=== PATIENT | male | born 1960 | race African-American/Black ===

== ENCOUNTER → 2016-10-25 | Outpatient (CLI) | payer OTHER ==
[~2016-10-25] MED LIST: AMBIEN 10 MG TA10 MG PO; AUGMENTIN 875875 MG PO; BACLOFEN 10MG T10 M1 PO; BACLOFEN 10MG T10 MG PO; BENADRYL25 MG PO; BETAPACE; BYSTOLIC 5 MG5 M1 PO; CARDIZEM CD240 MG PO; CEFEPIME HCL2 GM IV; CEFTIN 250 MG250 MG PO; CIPRO250 M1 PO; CLONAZEPAM 0.50.5 M1 PO; COMBIVENT INH; COMBIVENT RESPIM4 GM INH; COUMADIN 2.5MG2.5 M1 PO; COUMADIN 3 MG TA3 M1 PO; COUMADIN 4 MG TA4 M1 PO; COUMADIN 5 MG TA5 M1 PO; COUMADIN7.5 MG PO; DIGOXIN; DIGOXIN250 MCG PO; ENOXAPARIN100 MG/11 SUBQ; FLOMAX0.4 MG PO; FLONASE 0.05%50 MCG NASAL; HYDROCODONE-AP1 EAC6 PO; K-DUR 20 MEQ T20 MEQ PO; KEFLEX500 MG; KEFLEX500 MG PO; KLOR-CON 1010 MEQ PO; LASIX 40 MG TAB40 M2 PO; LASIX 40 MG TAB40 MG PO; MUCINEX TA600 MG/TA1 PO; MUPIROCIN22 GM; NITROFURANTOIN100 MG PO; NORCO 5-325 TA1 EACH PO; PAIN & FEVER325 MG PO; PRADAXA150 MG PO; PREDNISONE 10 M10 MG PO; PROTONIX40 M1 PO
== END ==
LOC: RAD 12:44
DX: R06.00 Dyspnea, unspecified (principal)

== ENCOUNTER 2017-12-19 17:33 | Emergency (ER) | payer OTHER ==
[~2017-12-19] VITALS: Ht 177.8 cm; Wt 81.7 kg
[2017-12-19 19:30] LABS: URINE BILIRUBIN NEGATIVE (Negative); URINE BLOOD 3+ (Negative); URINE CLARITY CLEAR; URINE COLOR YELLOW; URINE GLUCOSE-RANDOM* NEGATIVE (Negative); URINE KETONES NEGATIVE (Negative); URINE LEUKOCYTES 3+ (Negative); URINE NITRITE POSITIVE (Negative); URINE PROTEIN (DIPSTICK) 2+ (Negative); URINE SPECIFIC GRAVITY 1.015 (1.005-1.035); URINE UROBILINOGEN 0.2 E.U./dl (0.2-1.0)
[2017-12-19 19:37] LABS: CASTS None Seen /LPF (None Seen); CRYSTALS None Seen /LPF (None Seen); SQUAMOUS 4-10 Moderate /LPF (0-3); URINE RBC >20 Many /HPF (0-2); URINE WBC >25 Many /HPF (0-5)
[2017-12-19 19:38] LABS: WBC CLUMPS Many (None Seen)
[2017-12-19] MEDS ORDERED: KEFLEX500 M1 PO (19:53)
[2017-12-19 20:15] VITALS: BP 171/104
== END 2017-12-19 20:15 | disposition home or self-care (01) ==
LOC: ER 17:33
PROVIDERS: Nurse Practitioner
DX: N39.0 Urinary tract infection, site not specified (principal); I48.91 Unspecified atrial fibrillation; I50.9 Heart failure, unspecified

== ENCOUNTER → 2017-12-27 | Outpatient (CLI) | payer OTHER ==
[~2017-12-27] MED LIST changes: +KEFLEX500 M1 PO
[2017-12-27 13:13] LABS: BE(vivo) -1.9 mmol/L (-2 to +3); HCO3 21.9 mmol/L (22.0-26.0); PCO2 35.1 mmHg (35.0-45.0); PO2 78.6 mmHg (80.0-100.0); pH 7.413 (7.360-7.450); sO2 95.9 % (92.0-98.0)
== END ==
LOC: PUL 12:38
PROVIDERS: Internal Medicine Pulmonary Disease
DX: J98.4 Other disorders of lung (principal)

== ENCOUNTER → 2018-01-16 | Outpatient (CLI) | payer OTHER ==
--- NOTE | ~2018-01-16 | 2DMMODE ---
[facility] [place] [address] 2 D/M-MODE ECHOCARDIOGRAM Name: JESSENIAENMANUEL HERNANDEZ Room #: REG [facility]#: [id number] Admission: 01/16/18 Attend Phys: Giacomo Mendez Discharge: Date of : 64 Date of Service: 01/16/18 1540 Report #: [id number] THIS REPORT FOR: //name// APPROVED REPORT Study performed: 01/16/2018 14:50:17 EXAM: Comprehensive 2D, Doppler, and color-flow Echocardiogram Patient Location: Out-Patient Room #: Echo lab 1 Status: routine BSA: 2.15 HR: 72 bpm BP: 118/74 mmHg Other Information Study Quality: Technically Limited Indications Atrial Fibrillation Dyspnea Cardiomyopathy Hypertension/HDD 2D Dimensions IVC: 19.00 mm Aortic Valve AoV Peak Ke.: 1.01 m/s AO Peak Gr.: 4.10 mmHg LVOT Max P.49 mmHg LVOT Max V: 0.79 m/s Pulmonary Valve PV Peak Ke.: 0.92 m/s PV Peak Gr.: 3.40 mmHg Tricuspid Valve TR Peak Ke.: 2.61 m/s TR Peak Gr.: 27.31 mmHg PA Pressure: 32.00 mmHg Left Ventricle The left ventricle is normal size. There is normal left ventricular wall thickness. Left ventricular systolic function is borderline. LVEF is 50%. This study is not technically sufficient to allow evaluation of the LV diastolic function due to atrial [facility] [address] [place] [address] 2 D/M-MODE ECHOCARDIOGRAM Name: RUELASENMANUEL Room #: REG CL [facility].#: [id number] Admission: 01/16/18 Attend Phys: Giacomo Mendez Discharge: Date of : 64 Date of Service: 01/16/18 1540 Report #: [id number] fibrillation. Right Ventricle The right ventricle is normal size. The right ventricular systolic function is normal. Atria Left atrium is dilated. Right atrium is dilated. Aortic Valve The aortic valve is normal in structure. Aortic valve is calcified. No aortic regurgitation is present. There is no aortic valvular stenosis. Mitral Valve The mitral valve is normal in structure. Mild mitral regurgitation. No evidence of mitral valve stenosis. Tricuspid Valve The tricuspid valve is normal in structure. There is mild to moderate tricuspid regurgitation. Estimated PAP 32 mmHg. There is mild pulmonary hypertension. Pulmonic Valve The pulmonary valve is normal in structure. There is no pulmonic valvular regurgitation. Great Vessels The aortic root is normal in size. IVC is normal in size and collapses >50% with inspiration. Pericardium There is no pericardial effusion. <Conclusion> The left ventricle is normal size. LVEF is 50%. The right ventricle is normal size. The right ventricular systolic function is normal. Left atrium is dilated. Right atrium is dilated. The aortic valve is normal in structure. Aortic valve is calcified. The mitral valve is normal in structure. Mild mitral regurgitation. The tricuspid valve is normal in structure. [facility] [address] [address] 2 D/M-MODE ECHOCARDIOGRAM Name: ENMANUEL RUELAS Room #: REG CL [facility]#: [id number] Admission: 01/16/18 Attend Phys: Giacomo Mendez Discharge: Date of : 64 Date of Service: 01/16/181539 Report #: [id number] There is mild to moderate tricuspid regurgitation. Estimated PAP 32 mmHg. There is mild pulmonary hypertension. The pulmonary valve is normal in structure. There is no pericardial effusion. <ELECTRONICALLY SIGNED> By: Mekhi Meade MD 01/16/18 1540 39 39 Mekhi Meade MD /INF
== END ==
LOC: CV 01-11 10:34
DX: I42.9 Cardiomyopathy, unspecified (principal); I27.20 Pulmonary hypertension, unspecified; I70.0 Atherosclerosis of aorta; I08.1 Rheumatic disorders of both mitral and tricuspid valves

== ENCOUNTER 2018-02-02 13:40 | Inpatient (IN) | payer OTHER ==
[~2018-02-02] VITALS: Ht 182.9 cm; Wt 98.4 kg
--- NOTE | ~2018-02-02 | EKG ---
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 02/05/18 0810 1630 29 Jamie Corey MD, [facility] /EPI
[2018-02-02 13:40] VITALS: BP 130/97
[2018-02-02 14:56] LABS: HEMATOCRIT 43.6 % (42.0-52.0); HEMOGLOBIN 14.6 gm/dL (14.0-18.0); MCH 28.2 pg (26.0-34.0); MCHC 33.5 g/dL (28.0-37.0); MCV 84.4 fL (80.0-100.0); PLATELET COUNT 209 thou/uL (150-400); RBC 5.16 mil/uL (4.50-6.00); RDW 13.9 % (10.5-14.5); WBC 11.1 thou/uL (4.0-11.0)
[2018-02-02 15:09] LABS: CALCIUM 9.2 mg/dL (8.5-10.1); CREATININE 0.6 mg/dL (0.7-1.3); POTASSIUM 3.3 mmol/L (3.5-5.1)
[2018-02-02 15:15] LABS: TOTAL PROTEIN 8.8 g/dL (6.4-8.2)
[2018-02-02 15:18] LABS: ABSOLUTE NEUTROPHILS 8.7 thou/uL (1.4-8.2)
[2018-02-02 18:23] VITALS: BP 115/79
[2018-02-02 18:56] VITALS: BP 100/70
[2018-02-02] MEDS ORDERED: COUMADIN 5 MG TA5 M1 PO (20:24)
[2018-02-02] MEDS ORDERED: TOPROL XL25 MG PO (20:27)
[2018-02-02] MEDS ORDERED: OXYBUTYNIN 5 MG5 M2 PO (20:29)
[2018-02-02] MEDS ORDERED: BISACODYL SUPP10 MG RECTAL (20:29)
[2018-02-02] MEDS ORDERED: AMBIEN 5 MG TABL5 M1 PO (20:42)
[2018-02-02 20:45] VITALS: BP 80/57
[2018-02-03 04:00] VITALS: BP 85/62
[2018-02-03 05:52] LABS: HEMATOCRIT 41.9 % (42.0-52.0); HEMOGLOBIN 14.1 gm/dL (14.0-18.0); MCH 28.6 pg (26.0-34.0); MCHC 33.7 g/dL (28.0-37.0); MCV 84.8 fL (80.0-100.0); RBC 4.94 mil/uL (4.50-6.00); RDW 13.8 % (10.5-14.5); WBC 8.8 thou/uL (4.0-11.0)
[2018-02-03 05:59] LABS: CALCIUM 8.7 mg/dL (8.5-10.1); CREATININE 0.6 mg/dL (0.7-1.3); MAGNESIUM 1.8 mg/dL (1.8-2.4); POTASSIUM 3.7 mmol/L (3.5-5.1)
[2018-02-03 07:50] VITALS: BP 98/64
[2018-02-03 08:00] VITALS: BP 98/64
[2018-02-03 08:10] VITALS: BP 137/61
[2018-02-03 16:16] VITALS: BP 101/77
[2018-02-03 16:23] LABS: PROTIME 47.8 Seconds (9.3-11.4)
[2018-02-03 16:25] LABS: INR 4.8
[2018-02-03 19:25] VITALS: BP 102/80
[2018-02-04 04:54] VITALS: BP 112/85
[2018-02-04 07:52] VITALS: BP 182/116
[2018-02-04 08:23] LABS: HEMATOCRIT 43.1 % (42.0-52.0); HEMOGLOBIN 14.3 gm/dL (14.0-18.0); MCH 28.2 pg (26.0-34.0); MCHC 33.3 g/dL (28.0-37.0); MCV 84.5 fL (80.0-100.0); RBC 5.09 mil/uL (4.50-6.00); WBC 8.7 thou/uL (4.0-11.0)
[2018-02-04 08:31] LABS: CALCIUM 8.9 mg/dL (8.5-10.1); CREATININE 0.6 mg/dL (0.7-1.3); MAGNESIUM 1.8 mg/dL (1.8-2.4); POTASSIUM 3.5 mmol/L (3.5-5.1)
[2018-02-04 08:36] LABS: INR 4.3; PROTIME 42.8 Seconds (9.3-11.4)
[2018-02-04 14:29] LABS: URINE BILIRUBIN NEGATIVE (Negative); URINE BLOOD 2+ (Negative); URINE CLARITY CLEAR; URINE COLOR YELLOW; URINE GLUCOSE-RANDOM* NEGATIVE (Negative); URINE KETONES NEGATIVE (Negative); URINE NITRITE-REFLEX NEGATIVE (Negative); URINE PROTEIN (DIPSTICK) NEGATIVE (Negative); URINE UROBILINOGEN 0.2 E.U./dl (0.2-1.0)
[2018-02-04 14:33] LABS: URINE LEUKOCYTES-REFLEX 1+ (Negative)
[2018-02-04 14:49] LABS: BACTERIA-REFLEX None Seen /HPF (None Seen); CASTS None Seen /LPF (None Seen); CRYSTALS None Seen /LPF (None Seen); SQUAMOUS None Seen /LPF (0-3); URINE RBC 3-10 Few /HPF (0-2); URINE WBC-REFLEX 0-5 Rare /HPF (0-5)
[2018-02-04 17:12] VITALS: BP 114/84
[2018-02-04 20:30] VITALS: BP 83/56
[2018-02-05 04:20] LABS: HEMATOCRIT 42.9 % (42.0-52.0); HEMOGLOBIN 14.1 gm/dL (14.0-18.0); MCH 27.9 pg (26.0-34.0); MCHC 32.9 g/dL (28.0-37.0); MCV 84.7 fL (80.0-100.0); RBC 5.07 mil/uL (4.50-6.00); RDW 13.9 % (10.5-14.5); WBC 9.1 thou/uL (4.0-11.0)
[2018-02-05 04:29] LABS: CALCIUM 8.8 mg/dL (8.5-10.1); CREATININE 0.7 mg/dL (0.7-1.3); MAGNESIUM 1.6 mg/dL (1.8-2.4); POTASSIUM 3.4 mmol/L (3.5-5.1)
[2018-02-05 04:30] VITALS: BP 111/79
[2018-02-05 04:31] LABS: PROTIME 40.3 Seconds (9.3-11.4)
[2018-02-05 08:09] VITALS: BP 132/100
[2018-02-05 12:46] VITALS: BP 107/74
[2018-02-05 17:07] VITALS: BP 83/51
[2018-02-05 20:30] VITALS: BP 127/85
[2018-02-05 23:45] VITALS: BP 91/60
[2018-02-06 03:50] VITALS: BP 66/67
[2018-02-06 04:15] LABS: HEMATOCRIT 41.7 % (42.0-52.0); HEMOGLOBIN 13.8 gm/dL (14.0-18.0); MCH 27.8 pg (26.0-34.0); MCV 84.1 fL (80.0-100.0); RBC 4.96 mil/uL (4.50-6.00); RDW 14.1 % (10.5-14.5); WBC 9.5 thou/uL (4.0-11.0)
[2018-02-06 04:23] LABS: CALCIUM 8.5 mg/dL (8.5-10.1); CREATININE 0.7 mg/dL (0.7-1.3); MAGNESIUM 1.7 mg/dL (1.8-2.4); POTASSIUM 3.2 mmol/L (3.5-5.1)
[2018-02-06 04:25] VITALS: BP 92/67
[2018-02-06 04:28] LABS: INR 3.3; PROTIME 33.5 Seconds (9.3-11.4)
[2018-02-06 08:26] VITALS: BP 126/95
[2018-02-06 09:57] LABS: MAGNESIUM 1.7 mg/dL (1.8-2.4); POTASSIUM 3.6 mmol/L (3.5-5.1)
[2018-02-06 19:50] VITALS: BP 138/84
[2018-02-07 04:39] VITALS: BP 90/63
[2018-02-07 05:32] LABS: INR 2.9; PROTIME 28.8 Seconds (9.3-11.4)
[2018-02-07 07:04] VITALS: BP 101/74
[2018-02-07 13:05] VITALS: BP 101/74
[2018-02-07 14:16] VITALS: BP 101/74
[2018-02-07] MEDS ORDERED: AUGMENTIN 875-1 EACH PO (15:07)
[2018-02-07 16:47] VITALS: BP 101/74
== END 2018-02-07 17:15 | disposition home health service (06) | DRG 727 ==
LOC: ER 13:40 → EROBS 17:13 → 4E 17:13
PROVIDERS: Emergency Medicine; Internal Medicine; Nurse Practitioner Acute Care; Specialist
DX: N49.2 Inflammatory disorders of scrotum (principal); G82.52 Quadriplegia, C1-C4 incomplete; I42.9 Cardiomyopathy, unspecified; I48.92 Unspecified atrial flutter; N39.0 Urinary tract infection, site not specified; N31.9 Neuromuscular dysfunction of bladder, unspecified; I48.91 Unspecified atrial fibrillation; Z89.411 Acquired absence of right great toe; I50.9 Heart failure, unspecified; Z79.01 Long term (current) use of anticoagulants; Z79.899 Other long term (current) drug therapy; Z87.891 Personal history of nicotine dependence
CPT/HCPCS: 10183; 50455; 51620

== ENCOUNTER 2018-08-24 21:53 | Emergency (ER) | payer OTHER ==
[~2018-08-24] VITALS: Ht 182.9 cm; Wt 95.3 kg
[~2018-08-24 21:53] MED LIST changes: +AMBIEN 5 MG TABL5 M1 PO; +AUGMENTIN 875-1 EACH PO; +BISACODYL SUPP10 MG RECTAL; +OXYBUTYNIN 5 MG5 M2 PO; +TOPROL XL25 MG PO
[2018-08-24 22:31] LABS: URINE BILIRUBIN NEGATIVE (Negative); URINE BLOOD 2+ (Negative); URINE CLARITY CLOUDY; URINE COLOR YELLOW; URINE GLUCOSE-RANDOM* NEGATIVE (Negative); URINE KETONES TRACE (Negative); URINE PROTEIN (DIPSTICK) NEGATIVE (Negative); URINE SPECIFIC GRAVITY 1.025 (1.005-1.035); URINE UROBILINOGEN 0.2 E.U./dl (0.2-1.0)
[2018-08-24 22:32] LABS: HEMATOCRIT 52.4 % (42.0-52.0); HEMOGLOBIN 17.6 gm/dL (14.0-18.0); MCH 28.9 pg (26.0-34.0); MCHC 33.7 g/dL (28.0-37.0); RBC 6.1 mil/uL (4.50-6.00); RDW 15.3 % (10.5-14.5); WBC 10.9 thou/uL (4.0-11.0)
[2018-08-24 22:33] LABS: CALCIUM 9.1 mg/dL (8.5-10.1); CREATININE 0.8 mg/dL (0.7-1.3); POTASSIUM 3.9 mmol/L (3.5-5.1)
[2018-08-24 22:35] LABS: URINE LEUKOCYTES-REFLEX 3+ (Negative); URINE NITRITE-REFLEX POSITIVE (Negative)
[2018-08-24 22:39] LABS: ALBUMIN 4.1 g/dL (3.4-5.0); TOTAL BILIRUBIN 1.2 mg/dL (<0.1-1.0); TOTAL PROTEIN 8.7 g/dL (6.4-8.2)
[2018-08-24 22:40] LABS: CASTS None Seen /LPF (None Seen); CRYSTALS None Seen /LPF (None Seen); MUCUS 0-3 Light strn/LPF (None Seen); SQUAMOUS 4-10 Moderate /LPF (0-3); WBC CLUMPS Few (None Seen)
[2018-08-24 22:41] LABS: AMORPHOUS URATES Few /LPF (None Seen)
[2018-08-25] MEDS ORDERED: FLAGYL500 M1 PO (01:09)
[2018-08-25] MEDS ORDERED: VIBRAMYCIN 100100 MG PO (01:09)
[2018-08-25 01:41] VITALS: BP 104/77
== END 2018-08-25 01:43 | disposition home or self-care (01) ==
LOC: ER 21:53
PROVIDERS: Emergency Medicine
DX: K62.89 Other specified diseases of anus and rectum (principal); N39.0 Urinary tract infection, site not specified; I48.91 Unspecified atrial fibrillation; I42.9 Cardiomyopathy, unspecified; I50.9 Heart failure, unspecified; Z87.01 Personal history of pneumonia (recurrent); Z89.411 Acquired absence of right great toe; Z79.01 Long term (current) use of anticoagulants; Z79.899 Other long term (current) drug therapy

== ENCOUNTER → 2020-10-15 | Outpatient (CLI) | payer OTHER ==
[~2020-10-15] MED LIST changes: +FLAGYL500 M1 PO; +VIBRAMYCIN 100100 MG PO
== END ==
LOC: RAD 11:53
PROVIDERS: ATTEND Pediatrics
DX: J44.9 Chronic obstructive pulmonary disease, unspecified (principal); J98.4 Other disorders of lung; Q24.0 Dextrocardia

== ENCOUNTER 2021-02-06 14:36 | Inpatient (IN) | payer OTHER ==
[2021-02-06] VITALS (11 sets, daily range): BP systolic 71–115; BP diastolic 34–75
[~2021-02-06] VITALS: Ht 198.1 cm; Wt 104.9 kg
[2021-02-06 15:03] LABS: HEMATOCRIT 52.7 % (42.0-52.0); HEMOGLOBIN 17.7 gm/dL (14.0-18.0); MCH 29.5 pg (26.0-34.0); MCHC 33.6 g/dL (28.0-37.0); MCV 87.7 fL (80.0-100.0); PLATELET COUNT 159 thou/uL (150-400); RBC 6.01 mil/uL (4.50-6.00); RDW 15.2 % (10.5-14.5); WBC 14.8 thou/uL (4.0-11.0)
[2021-02-06 15:19] LABS: CALCIUM 9.1 mg/dL (8.5-10.1); POTASSIUM 4.7 mmol/L (3.5-5.1)
[2021-02-06 15:23] LABS: INR 2.52; PROTIME 26.3 Seconds (10.5-12.1)
[2021-02-06 15:28] LABS: ABSOLUTE NEUTROPHILS 12.9 thou/uL (1.4-8.2)
[2021-02-06 15:30] LABS: ALBUMIN 3.6 g/dL (3.4-5.0); DIRECT BILIRUBIN 0.2 mg/dL (<0.1-0.2); TOTAL BILIRUBIN 1.5 mg/dL (0.2-1.0); TOTAL PROTEIN 7.8 g/dL (6.4-8.2); TROPONIN-I 0.52 ng/mL (<0.06)
[2021-02-06 15:47] LABS: BE(vivo) -4.8 mmol/L (-2 to +3); HCO3 19.6 mmol/L (22.0-26.0); PCO2 35.3 mmHg (35.0-45.0); PO2 173.8 mmHg (80.0-100.0); pH 7.363 (7.360-7.450); sO2 99.1 % (92.0-98.0)
[2021-02-06 16:26] LABS: URINE BLOOD 3+ (Negative); URINE GLUCOSE-RANDOM* NEGATIVE (Negative); URINE KETONES TRACE (Negative); URINE PROTEIN (DIPSTICK) 3+ (Negative); URINE SPECIFIC GRAVITY 1.025 (1.005-1.035)
[2021-02-06 16:29] LABS: URINE LEUKOCYTES-REFLEX 2+ (Negative); URINE NITRITE-REFLEX POSITIVE (Negative)
[2021-02-06 16:30] LABS: ICTOTEST (BILI CONFIRMATORY) Negative (Negative); URINE BILIRUBIN NEGATIVE (Negative); URINE CLARITY CLOUDY; URINE COLOR REDDISH
[2021-02-06 16:31] LABS: SQUAMOUS None Seen /LPF (0-3); URINE WBC-REFLEX >25 Many /HPF (0-5)
[2021-02-06 16:32] LABS: BACTERIA-REFLEX >30 Many /HPF (None Seen); CASTS None Seen /LPF (None Seen); CRYSTALS None Seen /LPF (None Seen); URINE RBC >20 Many /HPF (NONE SEEN)
[2021-02-06] MEDS ORDERED: WARFARIN SODIUM5 MG PO (16:54)
[2021-02-06 22:11] LABS: CALCIUM 8.2 mg/dL (8.5-10.1); CREATININE 0.9 mg/dL (0.7-1.3); PHOSPHORUS 4.1 mg/dL (2.5-4.9); POTASSIUM 4.7 mmol/L (3.5-5.1); TROPONIN-I 0.22 ng/mL (<0.06)
[2021-02-07] VITALS (29 sets, daily range): BP systolic 91–149; BP diastolic 37–108
[2021-02-07 01:28] LABS: AMP/METHAMP Negative (Negative); BARBITURATES Negative (Negative); BENZODIAZEPINES Negative (Negative); COCAINE Negative (Negative); METHADONE Negative (Negative); OPIATES Negative (Negative); PCP Negative (Negative)
[2021-02-07 02:28] LABS: BASOPHILS 0.3 % (0.0-2.0); MCHC 31.7 g/dL (28.0-37.0)
[2021-02-07 02:30] LABS: ABSOLUTE NEUTROPHILS 14.9 thou/uL (1.4-8.2); HEMOGLOBIN 15.2 gm/dL (14.0-18.0); LYMPHOCYTES 5.1 % (24.0-44.0); MCH 28.6 pg (26.0-34.0); MONOCYTES 3.6 % (1.0-8.0); PLATELET COUNT 140 thou/uL (150-400); RBC 5.33 mil/uL (4.50-6.00); WBC 16.4 thou/uL (4.0-11.0)
[2021-02-07 02:38] LABS: INR 3.59; PROTIME 36.8 Seconds (10.5-12.1)
[2021-02-07 02:40] LABS: ALBUMIN 3.1 g/dL (3.4-5.0); CALCIUM 7.7 mg/dL (8.5-10.1); CREATININE 0.8 mg/dL (0.7-1.3); MAGNESIUM 1.7 mg/dL (1.8-2.4); PHOSPHORUS 2.9 mg/dL (2.6-4.7); POTASSIUM 3.8 mmol/L (3.5-5.1); TOTAL BILIRUBIN 1.1 mg/dL (0.2-1.0); TOTAL PROTEIN 6.8 g/dL (6.4-8.2)
--- NOTE | 2021-02-07 05:37 | NUR ---
Patient arrived to the unit approx 1944 from the ER via cart, nurse and respiratory. Patient awake and on Bipap. Transferred patient to ICU bed and placed on full ICU monitoring. Patient able to participate in admission history. HR noted to be in the 40's. Afib or Junctional. Consults called. Spoke to Dr. Hsieh and Dr. Lockwood. Dr. Hernandez did not call back. Patient rested for awhile and then started coughing, wanted off the bipap and to be placed on his own cpap that his friend has broght up to the hospital. RT at bedside to assist with this. Bedtime meds given and patient has slept most of the night since midnight. Am labs drawn and results noted. Patient placed on Levophed soon after arrival to ICu for pressures in the 70's. Max was 5 mcgs/min. Patient's pressures have improved through the night and now the levophed is off. Patient has his own Trilogy (AVAPS) at bedside with 2L o2. Adequate oxygenation on this. Taking water and pills by mouth without difficulty. Orders for NPO. Will address with day shift. No family called this shift. Patient with suprapubic cath in place, adequate urine output. See documentation on interventions for assessment details. Patient is progressing towards goals.
--- NOTE | 2021-02-07 08:22 | HC ---
[facility] [place] [address] CONSULTATION Name: ENMANUEL RUELAS Room #: 242-P ADM IN M.R.#: [id number] Admission: 02/06/21 Attend Phys: Norma Phillips MD Discharge: Date of : 64 Report #: [id number] THIS REPORT FOR: cc: Luis A Sánchez MD, Michael D. MD Barry, Joseph W. MD ~ DOC #: [id number] Leon Hsieh MD DATE OF SERVICE: 02/07/2021 INFECTIOUS DISEASE CONSULTATION ATTENDING PHYSICIAN: Dr. Phillips. REASON FOR EVALUATION: Sepsis secondary to complicated genitourinary tract infection, also pneumonitis. HISTORY OF PRESENT ILLNESS: Chart reviewed, patient examined. This is a 60-year-old gentleman with longstanding quadriplegia, has got a longstanding bladder catheter. He generally has been staying at home through the COVID period. Apparently diagnosed with complicated urinary tract infection, although he was not treated. He presented to the emergency room with complaints of progressive dyspnea. Evaluation was undertaken and was found to have marked pyuria. Initial CBC showed a mildly elevated white count of 14.8. He was hemoconcentrated with hemoglobin of 17.7, hematocrit of 52.7. Mild coagulopathy with INR of 2.52, lactic acid 2.5, that increased to 4.0 and procalcitonin 0.36. Chest x-ray was done as was CT of the chest. The latter showed left upper lobe and left lower lobe pneumonitis. He was concerned about worsening clinical status. The patient was clearly compromised. He was placed in the intensive care unit, given broad-spectrum antimicrobial therapy with meropenem and vancomycin. He is fairly lucid this morning, does remain in moderate discomfort. He has not had any recorded temperature elevations, although did require initially some pressor support with norepinephrine, this has been weaned off. ALLERGIES: None known. MEDICATIONS: Include bisacodyl, aspirin, hydrocortisone topically, vancomycin, clonazepam, baclofen, Combivent inhaler, zolpidem, famotidine, p.r.n. analgesics, antiemetics, meropenem. PAST MEDICAL HISTORY: As described above quadriplegia, C4 injury. He has a cardiomyopathy, recurrent complicated urinary tract infection with suprapubic catheter, chronic atrial fibrillation on anticoagulation, IVC filter. SOCIAL HISTORY: Former smoker, no ethanol, no illicit drug use. [address] [address] CONSULTATION Name: ENMANUEL RUELAS Room #: 242-P [facility]#: [id number] Admission: 02/06/21 Attend Phys: Norma Phillips MD Discharge: Date of : 64 Report #: [id number] FAMILY HISTORY: Noncontributory. REVIEW OF SYSTEMS: Otherwise, unremarkable. A 10-point review of systems exception of the above. PHYSICAL EXAMINATION: GENERAL: Appears chronically ill, undernourished. He is pleasant, cooperative. He is generally lucid. VITAL SIGNS: Temperature 97.9, pulse 74, respirations 14, blood pressure 93/63. SKIN: Warm, dry, no rashes. HEENT: Normocephalic. Extraocular muscles intact. NECK: Supple. He is on 2 L CPAP. LUNGS: Few scattered coarse breath sounds. HEART: Irregular, I do not appreciate a murmur. ABDOMEN: Somewhat distended. Suprapubic catheter in place. Mildly firm. EXTREMITIES: Some edema. GENITOURINARY AND RECTAL: Deferred. LABORATORY DATA: Most recent lactic acid this morning 1.1. Electrolytes: Sodium 139, potassium 3.8, chloride 107, bicarbonate is 20, anion gap of 12, BUN and creatinine 27.0 and 0.8, glucose of 128. LFTs unremarkable. Albumin of 3.1, total protein of 6.8. Estimated GFR of 120. PTT 36.8, INR of 3.59. CBC: White count of 16.4, H and H 15.2 and 48, platelets of 140. Drug screen was negative. TSH 2.103. CPK 149. Troponin 0.29. CT imaging of the chest as noted above. IMPRESSION: 1. Complicated urinary tract infection in the setting of suprapubic catheter. The patient with quadriplegia. 2. Pneumonitis, this may be acute on chronic as well. We will plan to continue empiric antimicrobial therapy in combination. Await culture results. I would imagine ____ down fairly quickly, although given his underlying issue, he remains tenuous. We will add incentive spirometry. Monitor expectantly. Leon Hsieh MD [facility] <ELECTRONICALLY SIGNED> By: Leon Hsieh MD 02/07/21 0822 0554 0629 Leon Hsieh MD /nt
--- NOTE | 2021-02-07 09:05 | EKG ---
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: LORIN : 1960 Requested By: Pj Prado Order Number: [id number] MD: José Miguel Lockwood Measurements Intervals [place] Rate: 48 P: FL: QRS: 93 QRSD: 129 T: 57 QT: 525 QTc: 470 Interpretive Statements A-flutter/fibrillation w/ complete AV block Right bundle branch block Compared to ECG 02/04/2018 16:30:53 Right bundle-branch block now present Electronically Signed On 02-07-2021 9:05:40 CDT by José Miguel Lockwood [email or web address] <ELECTRONICALLY SIGNED> By: José Miguel Lockwood MD, [facility] 02/07/21904 49 49 José Miguel Lockwood MD, [facility] /EPI
--- NOTE | 2021-02-07 09:48 | NUR ---
ALERT AND ORIENTED AND DENIES PAIN, VITALS STABLE AND HAS BEEN OFF LEVO OF LAST NIGHT PER REPORT. STARTED ON DIET AND DENIES NAUSEA. SUPRAPUBIC CATH NOTED WITH ADEQUATE OUTPUT. NO COMPLAINTS AT THIS TIME. WILL CONTINUE WITH POC.
--- NOTE | 2021-02-07 10:49 | NUR ---
VASCULAR ACCESS NURSE NOTED THE PICC/CENTRAL ORDER THAT WAS PLACED IN [facility] LAST PM. SPOKE TO THE HOT STONE SETTER THIS AM AT 0900. THIS PATIENT IS NOW OFF LEVOPHED AND HAS WORKING PIV ACCESS. I WILL AWAIT THE DECISION ON IF THE LINE IS STILL NECESSARY AND WILL RETURN TO PLACE IF NEEDED.
[2021-02-08] VITALS (12 sets, daily range): BP systolic 104–145; BP diastolic 74–103
[2021-02-08 03:05] LABS: GLYCOHEMOGLOBIN (HGB A1C) 5.7 % (4.8-5.6)
[2021-02-08 06:14] LABS: ABSOLUTE NEUTROPHILS 7.2 thou/uL (1.4-8.2); BASOPHILS 0.4 % (0.0-2.0); EOSINOPHILS 0.1 % (0.0-3.0); HEMATOCRIT 44.5 % (42.0-52.0); HEMOGLOBIN 14.5 gm/dL (14.0-18.0); LYMPHOCYTES 10.1 % (24.0-44.0); MCH 28.6 pg (26.0-34.0); MCHC 32.6 g/dL (28.0-37.0); MCV 87.5 fL (80.0-100.0); MONOCYTES 8.3 % (1.0-8.0); PLATELET COUNT 118 thou/uL (150-400); POLYS 81.1 % (36.0-66.0); RBC 5.08 mil/uL (4.50-6.00); RDW 14.9 % (10.5-14.5); WBC 8.9 thou/uL (4.0-11.0)
[2021-02-08 06:15] LABS: INR 3.72; PROTIME 38.1 Seconds (10.5-12.1)
[2021-02-08 06:33] LABS: CALCIUM 8.2 mg/dL (8.5-10.1); CREATININE 0.6 mg/dL (0.7-1.3); MAGNESIUM 2.4 mg/dL (1.8-2.4); PHOSPHORUS 1.7 mg/dL (2.5-4.9); POTASSIUM 3.6 mmol/L (3.5-5.1)
--- NOTE | 2021-02-08 07:46 | EKG ---
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 : 1960 Requested By: Norma Phillips Order Number: [id number] : José Miguel Lockwood Measurements Intervals [place] Rate: 81 P: CT: QRS: 69 QRSD: 94 T: 74 QT: 437 QTc: 508 Interpretive Statements Atrial fibrillation Compared to ECG 02/06/2021 14:50:41 Atrial flutter no longer present AV block, complete (third-degree) no longer present Right bundle-branch block no longer present Electronically Signed On 02-08-2021 7:45:56 CDT by José Miguel Lockwood [email or web address] <ELECTRONICALLY SIGNED> By: José Miguel Lockwood MD, [facility] 02/08/21 0745 0739 0739 José Miguel Lockwood MD, [facility] /[facility]
--- NOTE | 2021-02-08 07:55 | NUR ---
RECEIVED REPORT FROM JACKIE TIMBER CRUISER.PATIENT A/O X 4.DENIES PAIN.ON CPAP/TRILOGY.ABLE TO MOVE HIS LEFT ARM AND THE RIGHT ARM HAS LIMITED MOVEMENT,OTHERWISE PATIENT IS A QUAD.SUPRAPUBIC CATH INTACT.MONITOR SHOWS AFIB.POC CONTINUED.
--- NOTE | 2021-02-08 09:41 | NUR ---
WOUND CONSULT; I AM RESPONDING TO A CONSULT ENTERED. THE NURSE STATES THERE ARE NO WOUNDS, AND THE PATIENT STATES THERE ARE NO WOUNDS. WOUND CARE WITH SIGN OFF. DISCUSSED WITH RN
--- NOTE | 2021-02-08 09:42 | 2DMMODE ---
[facility] [place] [address] 2 D/M-MODE ECHOCARDIOGRAM Name: ENMANUEL RUELAS Room #: 219-P ADM IN M.R.#: [id number] Admission: 02/06/21 Attend Phys: Norma Phillips MD Discharge: Date of : 64 Report #: [id number] THIS REPORT FOR: cc: Luis A Sánchez MD, Michael D. MD Santiago, Patrick MD [facility] ~ APPROVED REPORT Study performed: 02/08/2021 08:45:31 EXAM: Comprehensive 2D, Doppler, and color-flow Echocardiogram Patient Location: Bedside Room #: 219 Status: routine BSA: 2.29 HR: 79 bpm BP: 136/103 mmHg Rhythm: Atrial Fibrillation Other Information Study Quality: Poor/only subcoastal windows Technically limited study due to CPAP, inability to postition. Indications LV function. Hx: Afib, quadraplegia. 2D Dimensions IVSd: 13.64 (7-11mm) LVDd: 46.29 mm PWd: 11.53 (7-11mm) LVDs: 32.95 (25-40mm) Left Atrium: 53.58 (27-40mm) Aortic Valve AoV Peak Ke.: 1.45 m/s AO Peak Gr.: 8.41 mmHg Mitral Valve MV Decel. Time: 177.70 ms MV E Max Ke.: 0.91 m/s Tricuspid Valve [facility] [address] [place] [address] 2 D/M-MODE ECHOCARDIOGRAM Name: ENMANUEL RUELAS Room #: 219-P ADM IN M.R.#: [id number] Admission: 02/06/21 Attend Phys: Norma Phillips, Discharge: Date of : 64 Report #: [id number] TR Peak Ke.: 2.97 m/s RAP Estimate: 15.00 mmHg TR Peak Gr.: 35.32 mmHg PA Pressure: 50.00 mmHg Left Ventricle The left ventricle is normal size. Mild concentric left ventricular hypertrophy. Left ventricular systolic function is normal. LVEF is 55%. This study is not technically sufficient to allow evaluation of the LV diastolic function due to atrial fibrillation. Right Ventricle Right ventricle is dilated. The right ventricular systolic function is low normal. Atria Biatrial enlargement. Aortic Valve The aortic valve is not well visualized. No aortic regurgitation is present. There is no aortic valvular stenosis. Mitral Valve The mitral valve is normal in structure. Trace mitral regurgitation. No evidence of mitral valve stenosis. Tricuspid Valve The tricuspid valve is normal in structure. Moderate tricuspid regurgitation. Estimated PAP is 45-50mmHg. Pulmonic Valve Pulmonic valve is not well visualized. Great Vessels IVC is dilated and collapses <50% with inspiration. Pericardium There is no pericardial effusion. <Conclusion> Technically difficult study Normal left ventricle size/mild concentric hypertrophy Ejection fraction 60% Right ventricle appears to be mildly dilated Borderline atrial enlargement Color-flow Doppler study was performed of the [facility] [address] [place] [address] 2 D/M-MODE ECHOCARDIOGRAM Name: RUELASENMANUELALEX HERNANDEZ Room #: 219-P ADM IN M.R.#: [id number] Admission: 02/06/21 Attend Phys: Norma Phillips, Discharge: Date of : 64 Report #: [id number] aortic/mitral/tricuspid/pulmonary valve Abnormal aortic/mitral valve structure and function Moderate tricuspid valve insufficiency Pulmonary systolic pressure estimated 40-50 mmHg No pericardial effusion IVC moderately dilated minimally responsive to respiration. Normal aortic root size. <ELECTRONICALLY SIGNED> By: José Miguel Lockwood MD, [facility] 02/08/21941 1 1 José Miguel Lockwood MD, [facility] /INF
--- NOTE | 2021-02-08 12:30 | NUR ---
Initial RD consult for wound. Admit with pneumonia, elevated troponin, UTI. Hx quadraplegia. Wound care consulted, however pt does not have wound. Appetite is good, has menu to order own selections if desired. NPO for procedure, previous had heart healthy diet order. Low nutrition risk
--- NOTE | 2021-02-08 16:18 | NUR ---
met with patient who admits with dsypnea, uti. Patient resides at home independently. He has wheelchair, hospital bed, ashley lift, home oxygen via [employer], Bipap and ramp to home. Patient reports he essentially at home alone. He has family assist to assist him out of bed to his chair. Patient has [facility] lpta. Plan resumption of care. Patient reports he is uncomfortable in hospital bed. he reports he has had skin breakdown in past and questioning if can have a different bed or mattress overlay. Updated NAYLA. Noman
--- NOTE | 2021-02-08 16:43 | NUR ---
PT CARE ASSUMED AT 0700. ASSESSMENTS CHARTED. MEDICATIONS CHARTED. RAC IV. LFA IV. ATIAL FIBRILLATION. CPAP WITH 2LPM. SUPRAPUBIC CATHETER. BRONCHOSCOPY CONSENT SIGNED. ECHO. CXR PORTABLE. NPO EXCEPT MEDS AND SIPS OF LIQUID. PARAPLEGIC FROM CHEST DOWN.
[2021-02-09] VITALS (7 sets, daily range): BP systolic 101–130; BP diastolic 75–91
[2021-02-09 04:00] LABS: HEMATOCRIT 43.9 % (42.0-52.0); HEMOGLOBIN 14.3 gm/dL (14.0-18.0); MCH 28.7 pg (26.0-34.0); MCHC 32.6 g/dL (28.0-37.0); RBC 4.99 mil/uL (4.50-6.00); RDW 14.7 % (10.5-14.5); WBC 7.1 thou/uL (4.0-11.0)
[2021-02-09 04:36] LABS: CALCIUM 8.2 mg/dL (8.5-10.1); CREATININE 0.5 mg/dL (0.7-1.3); POTASSIUM 3.1 mmol/L (3.5-5.1)
[2021-02-09 11:32] LABS: INR 2.23; PROTIME 23.4 Seconds (10.5-12.1)
--- NOTE | 2021-02-09 17:32 | NUR ---
PT CARE ASSUMED AT 0700. ASSESSMENTS CHARTED. MEDICATIONS CHARTED. RAC IV. LFA IV. ATRIAL FIBRILLATION. TRILOGY CPAP WITH 2LPM O2. COVID NEGATIVE. SUPRAPUBIC CATHETER. BRONCHOSCOPY AT 1315, MINIMAL SECRETIONS REMOVED. PT PLACED ON A NEW AIR BED, PREFERS IT GREATLY.
[2021-02-10 02:38] LABS: HEMATOCRIT 46.2 % (42.0-52.0); HEMOGLOBIN 15.2 gm/dL (14.0-18.0); MCH 28.5 pg (26.0-34.0); MCHC 32.9 g/dL (28.0-37.0); MCV 86.7 fL (80.0-100.0); RBC 5.32 mil/uL (4.50-6.00); RDW 14.5 % (10.5-14.5); WBC 7.6 thou/uL (4.0-11.0)
[2021-02-10 02:45] LABS: CALCIUM 8.4 mg/dL (8.5-10.1); CREATININE 0.7 mg/dL (0.7-1.3)
[2021-02-10 03:09] LABS: POTASSIUM 4.1 mmol/L (3.5-5.1)
[2021-02-10 04:45] VITALS: BP 113/84
[2021-02-10 06:16] LABS: URINE BILIRUBIN NEGATIVE (Negative); URINE BLOOD TRACE (Negative); URINE COLOR YELLOW; URINE GLUCOSE-RANDOM* NEGATIVE (Negative); URINE KETONES NEGATIVE (Negative); URINE LEUKOCYTES-REFLEX TRACE (Negative); URINE NITRITE-REFLEX NEGATIVE (Negative); URINE PROTEIN (DIPSTICK) NEGATIVE (Negative); URINE SPECIFIC GRAVITY >= 1.030 (1.005-1.035); URINE UROBILINOGEN 0.2 E.U./dl (0.2-1.0)
[2021-02-10 06:17] LABS: URINE CLARITY SL HAZY
[2021-02-10 07:36] VITALS: BP 126/90
--- NOTE | 2021-02-10 09:29 | NUR ---
ASSUMED PT CARE AT 0700. AT 0850, ASSESSMENT PERFORMED CHARTED. VSS. PT VOICES NO CONCERNS AT THIS TIME. WILL CONTINUE TO MONITOR AND FOLLOW POC.
[2021-02-10 11:18] VITALS: BP 138/91
--- NOTE | 2021-02-10 14:51 | NUR ---
spoke with patient cont plan for home with [facility]. OT reports patient refused. He reports hosp bed at home with trapeze at home. Sp with [facility] patient in recert period but they are agreeable to cont service with patient. faxed updated information for review.
--- NOTE | 2021-02-10 15:20 | NUR ---
ORDERS RECEIVED FOR EVAL AND TREAT. SPOKE WITH Pt WHO STATES HE HAS BEEN DEALING WITH THIS SINCE HIGH SCHOOL AND NOW USES A DAMASO LIFT FOR TRANSFERS TO HIS ELECTRIC WHEELCHAIR. Pt POLITELY DECLINING A FORMAL P.T. EVAL.
[2021-02-10 15:23] VITALS: BP 99/71
--- NOTE | 2021-02-10 16:16 | NUR ---
PTS FAMILY AT BEDSIDE. VSS. PT VOICES CONCERNS WITH SOME SWELLING IN LEGS. PT STATES HE TAKES LASIX AT HOME PRN. PT DENIES PAIN AT THIS TIME. PT REFUSED PT/OT TODAY, STATING THAT HE HAS WORKED WITH PT/OT HERE BEFORE AND IT DOES NOTHING FOR HIM. ASSESSMENT UNCHANGED. WILL CONTINUE TO MONITOR AND FOLLOW POC.
[2021-02-10 19:29] VITALS: BP 134/100
[2021-02-11 03:47] VITALS: BP 148/106
[2021-02-11 07:50] VITALS: BP 149/110
[2021-02-11 10:11] LABS: INR 1.81; PROTIME 19.2 Seconds (10.5-12.1)
[2021-02-11 12:00] VITALS: BP 115/75
[2021-02-11 12:02] VITALS: BP 149/110
[2021-02-11 15:15] VITALS: BP 117/84
--- NOTE | 2021-02-11 15:30 | NUR ---
Consult rec'd to arrange for a SMARTVEST airway clearance system at home. Script obtained from pulmonary and pt signed consent. Script, consent and clinical documentation faxed to [email or web address]. They will contact the pt directly to coordinate delievery tomorrow and education. DC on hold today per the attending with one more day of diureses. All parties anticipating dc to home tomorrow. [facility] notified and [facility] form completed and ready for non emergent transport to be set up in the am. The pt will need to notify his family or caregiver to be at his home to let him in. [employer] info packet provided to the pt. Will follow.
--- NOTE | 2021-02-11 19:19 | NUR ---
RN ASSUMED PT'S CARE AT 0700AM, PT IS A&OX3, PT IS CONTIUNG IV ABX, PT STARTS LASIX 40MG IV TODAY, PT'S SOB AND BLE EDEMA HAVE IMPROVED, PT 'S VS ARE STABLE, PT NEEDS HELP ADL , PT DENIES PAIN AT DAY SHIFT.
[2021-02-11 20:00] VITALS: BP 132/97
[2021-02-12 03:00] VITALS: BP 174/91
[2021-02-12 04:22] LABS: CALCIUM 8.7 mg/dL (8.5-10.1); CREATININE 0.6 mg/dL (0.7-1.3); POTASSIUM 3.6 mmol/L (3.5-5.1)
[2021-02-12 07:50] VITALS: BP 133/82
[2021-02-12 08:07] LABS: INR 1.72; PROTIME 18.3 Seconds (10.5-12.1)
--- NOTE | 2021-02-12 08:42 | NUR ---
ASSUMED PT CARE AT 0700. PT SLEEPING AT THAT TIME. AT 0840, PT ASSESSMENT PERFORMED CHARTED, PT PULLED COVERS BACK OVER HEAD AND WANTED TO WAIT ON ANY OTHER NURSING CARE. VSS. WILL CONTINUE TO MONITOR AND FOLLOW POC. PTS PLAN IS D/C AROUND 1300 TODAY VIA [facility].
[2021-02-12 11:30] VITALS: BP 103/83
--- NOTE | 2021-02-12 11:34 | NUR ---
PT NOTIFIED OF DRS WANTING HIM TO STAY ANOTHER NIGHT. PT REFUSES TO STAY AND INSIST THAT HE GOES HOME TODAY. ENERGY EFFICIENCY SPECIALIST, DR CASAS, AND DR HUNTER AWARE, AWAITING FINAL D/C ORDERS. WILL CONTINUE TO MONITOR AND FOLLOW POC.
--- NOTE | 2021-02-12 12:28 | NUR ---
Pt dcing home today. He did speak with Dr. SIMMS and declined to stay for a bronch. He wants to keep the 1300 [facility] transport time as his caregiver is there to let him in and get him settled. The attending and unit RN aware. Pt's smartvest will be delievered to his home and they will coordinate teaching with him directly. His family has taken his belongings home. HH orders to be faxed to [facility] for a visit this weekend. [facility] aware and can accept for resumption of services. No other needs noted. Pt has dme in place at home.
[2021-02-12] MEDS ORDERED: ADULT LOW DOSE81 MG PO (12:29)
[2021-02-12] MEDS ORDERED: ACETYLCYST200 MG/1 M INH (12:29)
[2021-02-12] MEDS ORDERED: METOPROLOL SUCC50 MG PO (12:29)
[2021-02-12] MEDS ORDERED: CARDIZEM CD120 MG PO (12:29)
[2021-02-12] MEDS ORDERED: PEPCID20 MG PO (12:29)
[2021-02-12] MEDS ORDERED: HYDROCORTISONE30 G9 TOP (12:29)
== END 2021-02-12 14:30 | disposition home health service (06) | DRG 871 ==
LOC: ER 14:36 → EROBS 17:23 → 2N 17:23 → ICU 17:23 → 2N 02-08 02:40
PROVIDERS: Hospitalist; Internal Medicine Pulmonary Disease; Nurse Practitioner; Specialist; ADMIT Internal Medicine; ATTEND Internal Medicine
PROC: 5A09357 Assistance with Respiratory Ventilation, Less than 24 Consecutive Hours, Continuous Positive Airway Pressure (ICD-10-PCS; principal; 2021-02-06)
PROC: 5A09557 Assistance with Respiratory Ventilation, Greater than 96 Consecutive Hours, Continuous Positive Airway Pressure (ICD-10-PCS; 2021-02-07)
PROC: 0B938ZX Drainage of Right Main Bronchus, Via Natural or Artificial Opening Endoscopic, Diagnostic (ICD-10-PCS; 2021-02-09)
DX: A41.9 Sepsis, unspecified organism (principal); J18.9 Pneumonia, unspecified organism; G82.50 Quadriplegia, unspecified; R65.21 Severe sepsis with septic shock; J96.21 Acute and chronic respiratory failure with hypoxia; N39.0 Urinary tract infection, site not specified; I48.21 Permanent atrial fibrillation; I42.8 Other cardiomyopathies; J98.11 Atelectasis; Z16.24 Resistance to multiple antibiotics; I50.9 Heart failure, unspecified; I27.20 Pulmonary hypertension, unspecified; I95.9 Hypotension, unspecified; T17.990A Other foreign object in respiratory tract, part unspecified in causing asphyxiation, initial encounter; D69.6 Thrombocytopenia, unspecified; J98.09 Other diseases of bronchus, not elsewhere classified; E87.6 Hypokalemia; N31.9 Neuromuscular dysfunction of bladder, unspecified; Z89.411 Acquired absence of right great toe; Z20.822 Contact with and (suspected) exposure to COVID-19; Z95.828 Presence of other vascular implants and grafts; Z87.891 Personal history of nicotine dependence; Z74.01 Bed confinement status; Z80.1 Family history of malignant neoplasm of trachea, bronchus and lung; Z79.01 Long term (current) use of anticoagulants; X58.XXXA Exposure to other specified factors, initial encounter; Y93.89 Activity, other specified; Y92.89 Other specified places as the place of occurrence of the external cause; Y99.8 Other external cause status
CPT/HCPCS: 10081; 10203; 62110; 62900; 65040; 70005